=== PATIENT | male | born 1995 | race Caucasian/White ===

== ENCOUNTER 2016-08-04 06:53 | Emergency (ER) | payer OTHER ==
[~2016-08-04] VITALS: Ht 172.7 cm; Wt 70.0 kg
[2016-08-04 07:06] VITALS: TEMP 36.6; Ht 172.7 cm; Wt 70.0 kg
--- NOTE | 2016-08-04 07:25 | EMERGENCY ROOM VISIT NOTE ---
History Report prepared by Mauryibmehnaz: Loi Condon Under the Supervision of: Dr. Lester Blanchard M.D. First contact with patient: 06:54 Stated Complaint: ALCOHOL OVERDOSE History of Present Illness The patient is a 21 year old male who presents to the Emergency Room with complaints of an acute alcohol overdose that started prior to arrival. The patient was found sleeping in the hallway of an apartment complex. The patient states that he is feeling fine now. He admits to drinking various types of alcoholic beverages. He also smoked marijuana earlier in the day. The patient denies any other drug use. He cannot recall falling or experiencing any trauma. The patient denies any headaches, abdominal pain, or leg pain. Complete history may be limited secondary to alcohol intoxication. Source of History: patient, EMS History Limited By: intoxication Onset: RECEIVING SPECIALIST Position: other (global) Quality: other (alcohol overdose) Timing: other (acute) Associated Symptoms: No abdominal pain, No headache Review of Systems ROS may be limited secondary to alcohol intoxication. Past Medical & Surgical Medical Problems: (1) Alcoholic intoxication Family History Patient reports no known family medical history. Social History Smoking Status: Never Smoker Occupation Status: [employer] student Current/Historical Medications No Active Prescriptions or Reported Meds Allergies Coded Allergies: Penicillin G (Unverified Allergy, Unknown, unkown, 08/04/16) had reaction when had oral surgery, Physical Exam Vital Signs Date Time Temp Pulse Resp B/P Pulse Ox O2 Delivery O2 Flow Rate FiO2 08/04/16 12:01 96 18 132/76 98 Room Air 08/04/16 10:52 78 08/04/16 09:26 79 99/59 97 Room Air 08/04/16 07:06 36.6 79 18 138/94 98 Room Air 08/04/16 07:01 83 Physical Exam GENERAL: Patient awake, alert, oriented, speech is slightly slow but coherent. SKIN: No erythema, pallor, cyanosis or rash HEENT: Normocephalic. No lumps, bumps, or bruises, pupils equal, reactive to light and accommodation. Ears normal. Oral cavity and posterior pharynx appear normal. Neck: Without adenopathy, no neck vein distention. LUNGS: Clear to auscultation. No wheezes, no rales, no rhonchi. HEART: No murmurs. No gallops. No rubs ABDOMEN: Soft, nontender. EXTREMITIES: No pain of any extremities. NEUROLOGIC: Cranial nerves II-XII within normal limits. No gross motor sensory function deficits. Medical Decision & Procedures ED Course 0654: Past medical records reviewed. The patient was evaluated in room B3a. A complete history and physical examination was performed. 1152: The patient is up, walking around, and talking without problems. His friends are on their way to take him home. 1200: Upon reevaluation, the patient appeared sober enough to be discharged. I discussed today's findings with him. He verbalized agreement of the treatment plan. He was discharged home. Medical Decision I considered multiple diagnoses including alcohol intoxication, drug intoxication, aspiration, fall. The patient is awake alert appropriate. The patient has no evidence of any recent aspiration or vomiting. He is able to walk and talk without difficulty. The patient apparently fell asleep and was brought in by police. The patient does admit to drinking multiple alcoholic drinks but denies drugs other than some marijuana earlier in the day. At this point, I do not believe the patient requires any further testing including alcohol. I believe the risk of aspiration or falling is low. The patient waited for a ride home. The patient was counseled about excessive alcohol consumption. Impression Primary Impression: Alcoholic intoxication Scribe Attestation The scribe's documentation has been prepared under my direction and personally reviewed by me in its entirety. I confirm that the note above accurately reflects all work, treatment, procedures, and medical decision making performed by me. Departure Information Dispostion Home / Self-Care Prescriptions No Active Prescriptions or Reported Meds Referrals No Doctor, Assigned (PCP) Forms HOME CARE DOCUMENTATION FORM, IMPORTANT VISIT INFORMATION Patient Instructions Alcohol Abuse - [facility], [place] [facility]: [employer] Students and Alcohol Related Visits, My [facility] Additional Instructions Drink extra nonalcohol containing fluids. Tylenol as needed for aches, pain or hangover. If you drink alcohol, drink only in moderation.
[2016-08-04 12:01] VITALS: BP 132/76; PULSE 96; O2SAT 98
== END 2016-08-04 12:02 | disposition home or self-care (01) ==
LOC: EDBD 06:53 → C.EDB 06:54
DX: F10.129 Alcohol abuse with intoxication, unspecified (principal)

== ENCOUNTER 2016-11-14 13:16 | Emergency (ER) | payer OTHER ==
[~2016-11-14] VITALS: Ht 172.7 cm; Wt 73.0 kg
[2016-11-14 13:31] VITALS: TEMP 36.4; Ht 172.7 cm; Wt 73.0 kg
[2016-11-14] MEDS ORDERED: SODIUM CHLORIDE 0.9% 1000ML 1,000 ML IV STA (14:03)
[2016-11-14] MEDS ORDERED: ACETAMINOPHEN 500 MG TAB PO STA (14:03)
[2016-11-14 14:30] LABS: BASO % 0.9 %; BASO ABS # 0.08 K/uL (0-0.2); COMPLETE YES; EOS % 1.9 %; HEMATOCRIT 47.1 % (42-52); IG% 0.8 %; LYMPH % 33.9 %; LYMPH ABS # 3.15 K/uL (1.2-3.4); MEAN CELL VOLUME 95.7 fL (80-100); MEAN CORPUSCULAR HEMOGLOBIN 32.7 pg (25-34); MEAN CORPUSCULAR HGB CONC 34.2 g/dl (32-36); MEAN PLATELET VOLUME 9.5 fL (7.4-10.4); MONO % 6.1 %; NEUT % 56.4 %; PLATELET COUNT 464 K/uL (130-400); RED BLOOD COUNT 4.92 M/uL (4.7-6.1); WHITE BLOOD COUNT 9.29 K/uL (4.8-10.8)
[2016-11-14 14:35] VITALS: O2SAT 99
[2016-11-14 14:37] LABS: BUN/CREATININE RATIO 7.4 (10-20); CALCIUM 9.1 mg/dl (8.5-10.1); CREATININE 1.2 mg/dl (0.60-1.40); MAGNESIUM 2.3 mg/dl (1.8-2.4); POTASSIUM 3.6 mmol/L (3.5-5.1)
[2016-11-14 14:48] LABS: PHOSPHORUS 3.2 mg/dl (2.5-4.9); THYROID STIMULATING HORMONE 0.873 uIu/ml (0.300-4.500)
--- NOTE | 2016-11-14 15:39 | DIAGNOSTIC IMAGING REPORT ---
CT OF THE HEAD WITHOUT CONTRAST CLINICAL HISTORY: Seizure. COMPARISON STUDY: No previous studies for comparison. CT DOSE: 614.27 mGy.cm TECHNIQUE: Helical axial images of the head were obtained without IV contrast. Automated exposure control was utilized for the study. FINDINGS: No acute intracranial hemorrhage, midline shift or mass effect is present. Brain volume is normal. Ventricular system is normal. Basilar cisterns are patent. There are no extra-axial collections. Rivas-white differentiation is maintained. There are no findings to suggest acute dural sinus thrombosis or acute territorial infarct. Visualized portions of the sinuses and mastoid air cells are clear. There is no calvarial fracture. IMPRESSION: No acute intracranial findings. Electronically signed by: Jona Norman M.D. 11/14/2016 3:37 PM Dictated Date/Time: 11/14/2016 3:23 PM
--- NOTE | 2016-11-14 16:02 | EMERGENCY ROOM VISIT NOTE ---
History First contact with patient: 13:49 Chief Complaint: SEIZURE Stated Complaint: SEIZURE Nursing Triage Summary: seizure x1 today History of Present Illness The patient is a 21 year old male who presents to the Emergency Room via EMS for possible seizure today. Episode occurred approximately one hour ago and was witnessed by the patient's roommate. Patient states he remembers getting out of the shower, after which she reportedly fell to the ground with approximately 30 seconds of shaking activity followed by one episode of vomiting and a period of confusion. On arrival to the ED, he is alert and oriented. He complains of a mild headache, generalized, 4/10, and believes he fell and hit his head during this episode. He denies any neck pain, back pain, chest pain, shortness of breath, palpitations, nausea, abdominal pain, urinary symptoms. He denies any previous history of seizures, but does note that for the past few months he has been having "twitching episodes" that have not been fully worked up by his doctor. Review of Systems GENERAL: Denies fever, chills, malaise, weakness, unintentional weight changes. HEENT: Denies dizziness, visual problems, hearing loss, tinnitus. Denies difficulty swallowing or oral lesions. PULMONARY: Denies cough, shortness of breath, sputum production or hemoptysis. CARDIOVASCULAR: Denies chest pain, palpitations, dyspnea on exertion, orthopnea or peripheral edema. GASTROINTESTINAL: Denies diarrhea, constipation, nausea, vomiting, or abdominal pain. GENITOURINARY: Denies dysuria, frequency, urgency or nocturia. NEUROLOGIC: + Headache. Denies history of epilepsy, CVA, TIA or chronic headaches. MUSCULOSKELETAL: Denies history of joint tenderness/swelling. SKIN: Denies rashes or lesions. PSYCHIATRIC: Denies history of depression or mental illness. ENDOCRINE: Denies history of diabetes, thyroid disorders, abnormal hair growth or sexual dysfunction. Past Medical/Surgical History Medical Problems: (1) Alcoholic intoxication Family History Patient reports no known family medical history. Social History Smoking Status: Never Smoker Occupation Status: [employer] student Current/Historical Medications No Active Prescriptions or Reported Meds Allergies Coded Allergies: Amoxicillin (Unverified Allergy, Severe, UNKNOWN, 11/14/16) Physical Exam Vital Signs Date Time Temp Pulse Resp B/P Pulse Ox O2 Delivery O2 Flow Rate FiO2 11/14/16 16:48 77 18 120/70 98 11/14/16 16:19 78 12 116/66 97 Room Air 11/14/16 14:39 87 16 137/88 100 Room Air 11/14/16 14:35 99 Room Air 11/14/16 14:35 99 Room Air 11/14/16 13:31 36.4 109 20 118/74 97 Room Air 11/14/16 13:29 107 Physical Exam CONSTITUTIONAL: Well appearing and well nourished. Alert and oriented X 4 with normal affect. HEENT: Normocephalic, atraumatic. Pupils equal, round and reactive to light, EOMI. TMs normal, no hemotympanum. NECK: Supple, full active range of motion without discomfort. No midline tenderness. RESPIRATORY: Clear to auscultation bilaterally with no wheezing, crackles, rhonchi or stridor. Equal expansion bilaterally. CARDIOVASCULAR: Regular rate and rhythm with no murmurs, rubs or gallops. Normal peripheral perfusion. No edema. GASTROINTESTINAL: Soft, nontender, nondistended. Bowel sounds present in all quadrants. MUSCULOSKELETAL: Full range of motion of all joints without discomfort. INTEGUMENTARY: No rash or other significant dermatologic conditions noted. NEUROLOGIC: Cranial nerves II-XII grossly intact. No focal neurologic deficits noted. Normal strength, normal sensation, normal reflexes, normal gait and balance. Medical Decision & Procedures ER Provider Diagnostic Interpretation: CT OF THE HEAD WITHOUT CONTRAST CLINICAL HISTORY: Seizure. COMPARISON STUDY: No previous studies for comparison. CT DOSE: 614.27 mGy.cm TECHNIQUE: Helical axial images of the head were obtained without IV contrast. Automated exposure control was utilized for the study. FINDINGS: No acute intracranial hemorrhage, midline shift or mass effect is present. Brain volume is normal. Ventricular system is normal. Basilar cisterns are patent. There are no extra-axial collections. Rivas-white differentiation is maintained. There are no findings to suggest acute dural sinus thrombosis or acute territorial infarct. Visualized portions of the sinuses and mastoid air cells are clear. There is no calvarial fracture. IMPRESSION: No acute intracranial findings. Laboratory Results 11/14/16 13:10 Red Blood Count 4.92, Mean Corpuscular Volume 95.7, Mean Corpuscular Hemoglobin 32.7, Mean Corpuscular Hemoglobin Concent 34.2, Mean Platelet Volume 9.5, Neutrophils (%) (Auto) 56.4, Lymphocytes (%) (Auto) 33.9, Monocytes (%) (Auto) 6.1, Eosinophils (%) (Auto) 1.9, Basophils (%) (Auto) 0.9, Neutrophils # (Auto) 5.24, Lymphocytes # (Auto) 3.15, Monocytes # (Auto) 0.57, Eosinophils # (Auto) 0.18, Basophils # (Auto) 0.08 11/14/16 13:10 Test 11/14/16 13:10 11/14/16 14:33 11/14/16 16:15 White Blood Count 9.29 K/uL (4.8-10.8) Red Blood Count 4.92 M/uL (4.7-6.1) Hemoglobin 16.1 g/dL (14.0-18.0) Hematocrit 47.1 % (42-52) Mean Corpuscular Volume 95.7 fL (80-100) Mean Corpuscular Hemoglobin 32.7 pg (25-34) Mean Corpuscular Hemoglobin Concent 34.2 g/dl (32-36) Platelet Count 464 K/uL (130-400) Mean Platelet Volume 9.5 fL (7.4-10.4) Neutrophils (%) (Auto) 56.4 % Lymphocytes (%) (Auto) 33.9 % Monocytes (%) (Auto) 6.1 % Eosinophils (%) (Auto) 1.9 % Basophils (%) (Auto) 0.9 % Neutrophils # (Auto) 5.24 K/uL (1.4-6.5) Lymphocytes # (Auto) 3.15 K/uL (1.2-3.4) Monocytes # (Auto) 0.57 K/uL (0.11-0.59) Eosinophils # (Auto) 0.18 K/uL (0-0.5) Basophils # (Auto) 0.08 K/uL (0-0.2) RDW Standard Deviation 44.6 fL (36.4-46.3) RDW Coefficient of Variation 12.9 % (11.5-14.5) Immature Granulocyte % (Auto) 0.8 % Immature Granulocyte # (Auto) 0.07 K/uL (0.00-0.02) Anion Gap 15.0 mmol/L (3-11) Est Creatinine Clear Calc Drug Dose 94.2 ml/min Estimated GFR () 99.6 Estimated GFR (Non- 85.9 BUN/Creatinine Ratio 7.4 (10-20) Calcium Level 9.1 mg/dl (8.5-10.1) Phosphorus Level 3.2 mg/dl (2.5-4.9) Magnesium Level 2.3 mg/dl (1.8-2.4) Thyroid Stimulating Hormone (TSH) 0.873 uIu/ml (0.300-4.500) Bedside Glucose 85 mg/dl (70-99) Urine Color YELLOW Urine Appearance CLEAR (CLEAR) Urine pH 8.0 (4.5-7.5) Urine Specific [place] 1.025 (1.000-1.030) Urine Protein NEG (NEG) Urine Glucose (UA) NEG (NEG) Urine Ketones NEG (NEG) Urine Occult Blood NEG (NEG) Urine Nitrite NEG (NEG) Urine Bilirubin NEG (NEG) Urine Urobilinogen NEG (NEG) Urine Leukocyte Esterase NEG (NEG) Urine WBC (Auto) 1-5 /hpf (0-5) Urine RBC (Auto) 0-4 /hpf (0-4) Urine Hyaline Casts (Auto) 5-10 /lpf (0-5) Urine Epithelial Cells (Auto) >30 /lpf (0-5) Urine Bacteria (Auto) NEG (NEG) Urine Renal Epithelial Cells /lpf (0-5) Urine Mucus PRESENT (NONE PRSENT) Urine Opiates Screen NEG (NEG) Urine Methadone, Qualitative NEG (NEG) Urine Barbiturates NEG (NEG) Urine Phencyclidine (PCP) Level NEG (NEG) Ur Amphetamine/Methamphetamine NEG (NEG) MDMA (Ecstasy) Screen NEG (NEG) Urine Benzodiazepines Screen POS (NEG) Urine Cocaine Metabolite NEG (NEG) Urine Marijuana (THC) POS (NEG) Medications Administered Medications (Trade) Dose Ordered Sig/[place] Route Start Time Stop Time Status Last Admin Dose Admin Acetaminophen 1000 mg 1,000 mg NOW STAT PO 11/14/16 14:03 11/14/16 14:18 DC 11/14/16 14:59 1,000 MG Sodium Chloride (Nss 1000ml) 1,000 ml @ 999 mls/hr Q1H1M STAT IV 11/14/16 14:03 11/14/16 15:03 DC 11/14/16 14:30 999 MLS/HR ECG Indication: syncope Rate (beats per minute): 108 Rhythm: sinus tachycardia Findings: nonspecific-ST abn Comparison ECG Date: no prior available Medical Decision Patient is currently alert and oriented with no neurologic findings. Episode was witnessed by his roommate, but not seen by any medical personnel. Patient does admit to some heavy alcohol intake at times, and occasional marijuana use. Basic labs, urine and UDS, head CT ordered to assess for underlying causes for first-time possible seizure. Workup is unremarkable. Headache improved after Tylenol and IV fluids. Patient tolerating PO well. I discussed all results with the patient and plan for discharge, particularly seizure precautions he should follow until follow-up with his PCP, as well as return precautions. Patient verbalized understanding. Patient discussed with the attending physician, who agrees with my assessment and disposition. Impression Primary Impression: Seizure-like activity Departure Information Dispostion Home / Self-Care Condition GOOD Prescriptions No Active Prescriptions or Reported Meds Referrals No Doctor, Assigned (PCP) Patient Instructions ED Seizure New Onset Unk Cause, My [facility] Additional Instructions Follow-up with your PCP in the next week. Drink plenty of fluids to stay well hydrated. We are unsure if you had a true seizure today or not. Until you follow up with your doctor, it is important that you DO NOT drive, operate machinery, use alcohol or other recreational drugs, or engage in any other activities that could put you or others at risk for injury. Please return to the ER for any worsening of symptoms, including severe headache , confusion, weakness or numbness on one side of the body, slurred speech, recurrence of seizure-like activity, or any other concerns.
[2016-11-14 16:32] LABS: MANUAL MICROSCOPIC REQUIRED? NO; REVIEW REQ? YES; URINE APPEARANCE CLEAR (CLEAR); URINE BILIRUBIN NEG (NEG); URINE COLOR YELLOW; URINE EPITHELIAL CELL AUTO >30 /lpf (0-5); URINE NITRITE NEG (NEG); URINE SPECIFIC GRAVITY 1.025 (1.000-1.030); UROBILINOGEN NEG (NEG)
[2016-11-14 16:33] LABS: SULFASALICYLIC ACID NEG (NEG)
[2016-11-14 16:41] LABS: URINE MUCUS PRESENT (NONE PRSENT)
[2016-11-14 16:48] VITALS: BP 120/70; PULSE 77; O2SAT 98
[2016-11-14 16:51] LABS: BENZODIAZEPINE, URINE POS (NEG); COCAINE,URINE NEG (NEG); PHENCYCLIDINE, URINE NEG (NEG)
[2016-11-18 04:30] LABS: HYDROXYETHYLFLURAZEPAM CONF NEGATIVE NG/ML (CUTOFF=50); HYDROXYMIDAZOLAM NEGATIVE NG/ML (CUTOFF=50); HYDROXYTRIAZOLAM CONF NEGATIVE NG/ML (CUTOFF=50); TEMAZEPAM CONF NEGATIVE NG/ML (CUTOFF=50)
== END 2016-11-14 16:53 | disposition home or self-care (01) ==
LOC: EDBD 13:16 → C.EDB 13:18
DX: R56.9 Unspecified convulsions (principal)